=== PATIENT | male | born 1975 | race Caucasian/White ===

== ENCOUNTER 2016-07-27 05:59 | Emergency (ER) ==
[2016-07-27] MEDS ORDERED: DILAUDID IM ONE (06:27)
[2016-07-27] MEDS ORDERED: DECADRON IM ONE (06:28)
[2016-07-27] MEDS ORDERED: PHENERGAN IM ONE (06:28)
--- NOTE | 2016-07-27 06:34 | PROVIDER DOCUMENTATION ---
HPI-General Adult - General Chief Complaint: Back Pain Stated Complaint: BACK PAIN Time Seen by Provider: 07/27/16 06:22 Source: patient Allergies/Adverse Reactions: Patient Allergies Allergy/AdvReac Type Severity Reaction Status Date / Time lorazepam [From Ativan] AdvReac Severe "MADE ME Verified 07/27/16 06:08 WILD" Home Medications: Home Medication List Medication Instructions Recorded Confirmed Last Taken Type Sertraline [Zoloft] 100 mg PO DAILY 03/12/16 07/27/16 04/06/16 History Clonidine [Catapres] 0.1 mg PO HS 04/06/16 07/27/16 04/06/16 History - History of Present Illness -Gen Adult Nature of Presenting Problems: This patient has had back pain for several months and sees Dr. Pérez. He was seen by the back docs in and is scheduled for an MRI and an appointment in September. He is just taking Tylenol for pain and states it is getting much worse. Location of Pain/Injury: reports: back Pain Radiation: reports: legs (lower) (left) Quality of Pain: reports: aching, sharp, tearing, throbbing Severity: reports: moderate Timing: reports: still present Context/Activities at Onset: reports: moderate activity Modifying Factors: improves with: lying down, rest. worse with: exercise, movement Associated Symptoms: denies: back/neck pain, chest pain, diaphoresis, fever/ chills, sinus congestion/drainage, shortness of breath Similar Symptoms Previously?: Yes Recently seen or treated by another doctor?: Yes Review of Systems - Adult - REVIEW OF SYSTEMS - ADULT Constitutional: reports: no symptoms reported Eyes: reports: no symptoms reported Ears, Nose, Mouth & Throat: reports: no symptoms reported Cardiovascular: reports: no symptoms reported Respiratory: reports: no symptoms reported Gastrointestinal: reports: no symptoms reported Genitourinary: reports: no symptoms reported Musculoskeletal: reports: back pain Integumentary: reports: no symptoms reported Neurological: reports: no symptoms reported Psychiatric: reports: no symptoms reported Endocrine: reports: no symptoms reported Hematologic/Lymphatic: reports: no symptoms reported Allergic/Immunologic: reports: no symptoms reported All Other Systems: Reviewed and Negative Past History - Adult - PAST MEDICAL HISTORY-ADULT Major Childhood Illnesses: reports: denies history Cardiovascular: reports: HTN, murmur Respiratory: reports: denies history Gastrointestinal: reports: denies history Obstetrical/Gynecological: reports: denies history Genitourinary: reports: denies history Musculoskeletal: reports: denies history Neurological: reports: denies history Psychiatric: reports: anxiety Endocrine/Immune: reports: denies history Other Conditions: reports: denies history - PRIOR SURGERIES/PROCEDURES Surgical/Procedure History: reports: hernia repair, other (splenectomy,repaired aorta liver lac ) - IMMUNIZATION STATUS Childhood Immunizations: See Nurse Assessment Flu Vaccine: See Nurse Assessment - FAMILY HISTORY Family History: reviewed, not pertinent - SOCIAL HISTORY Smoking: cigarettes Physical Exam-General - PHYSICAL EXAM-ADULT Initial Vital Signs Reviewed: Yes - CONSTITUTIONAL General Appearance: appears well, mild distress - HEAD, EARS, NOSE, MOUTH & THROAT HENMT: normocephalic/atraumatic - RESPIRATORY Respiratory: lungs clear, normal breath sounds - CARDIOVASCULAR Cardiovascular: regular rate, rhythm - GASTROINTESTINAL (ABDOMEN) Abdominal Exam: non tender, soft - MUSCULOSKELETAL Back Exam: decreased range of motion, vertebral tenderness, other (SLR negative) - SKIN Integumentary: normal color, normal turgor - NEUROLOGIC Neurologic: grossly normal - PSYCHIATRIC Psych/Mental Status: oriented x 3 Departure - Departure Time of Disposition Order: 06:32 DIAGNOSIS: Back pain of lumbar region with sciatica Disposition: HOME 01 Certified Medical Emergency: Urgent Condition: Good Additional Instructions: Follow up with the [facility] in [facility].
[2016-07-27 07:45] VITALS: BP 132/074
== END 2016-07-27 07:40 | disposition home or self-care (01) ==
LOC: P.ED 05:59
DX: M54.40 Lumbago with sciatica, unspecified side (principal); M79.662 Pain in left lower leg; I10 Essential (primary) hypertension; F41.9 Anxiety disorder, unspecified; Z79.899 Other long term (current) drug therapy; Z90.81 Acquired absence of spleen
CPT/HCPCS: 96372; J1100; J1170; J2550

== ENCOUNTER 2016-07-31 12:18 | Emergency (ER) ==
[2016-07-31] MEDS ORDERED: ASPIRIN PO STA (12:33)
[2016-07-31 12:45] LABS: MANUAL DIFF NEEDED? NO
[2016-07-31 12:51] LABS: BASO% 0.5 % (0.0-0.8); EOS# 0.26 X1000 (0.0-0.7); EOS% 1.5 % (0.0-10.0); HEMATOCRIT 50.6 % (42.0-52.0); HEMOGLOBIN 17.4 g/dL (14.0-18.0); IMM GRAN# 0.06 X1000 (0.0-0.04); IMM GRAN% 0.3 % (0.0-0.5); LYMPH# 3.54 X1000 (1.2-3.4); LYMPH% 20.6 % (20.5-51.1); MCH 31.5 PG (27-31); MCHC 34.4 g/dL (33-37); MCV 91.7 FL (81-99); MONO% 8.7 % (1.7-9.3); NEUT% 68.4 % (42.2-75.2); PLT 353 X1000 (130-400); RBC 5.52 XMIL (4.7-6.1)
[2016-07-31 13:07] LABS: INR 0.81 (0.86-1.15); PROTIME 11.5 Seconds (12.1-15.5)
[2016-07-31 13:24] LABS: AGAP 14; ALBUMIN 4.7 g/dL (3.5-5.0); ALKALINE PHOSPHATASE 54 U/L (32-122); BUN 11 mg/dL (8-22); CALCIUM 9.5 mg/dL (8.8-10.2); CHLORIDE 101 mmol/L (98-107); CK PROFILE 58 U/L (24-204); COSMO 279; GOT 19 U/L (10-34); GPT 19 U/L (10-44); MAGNESIUM 2.1 mg/dL (1.5-2.7); POTASSIUM 3.3 mmol/L (3.5-5.1); SODIUM 140 mmol/L (136-145); TCO2 26 mmol/L (25-35); TOTAL PROTEIN 7.3 g/dL (6.3-8.3)
--- NOTE | 2016-07-31 13:31 | Diag Imaging Result Document ---
PROCEDURE NAME: CHEST-PORTABLE - 07/31/2016 PORTABLE CHEST X-RAY: COMPARISON: 06/16/2016. FINDINGS: Stable volume loss on the left side, with upsloping of the left hemidiaphragm. No focal infiltrates, pneumothorax, or pleural effusion. Heart size and pulmonary vascularity is normal. IMPRESSION: No acute disease or change from prior.
--- NOTE | 2016-07-31 14:09 | EKG Report ---
Test Performed on : 07/31/2016 1:40:08 PM Test Reason : CHEST PAIN Blood Pressure : / mmHG Vent. Rate : 067 BPM Atrial Rate : 067 BPM P-R Int : 126 ms QRS Dur : 098 ms QT Int : 402 ms P-R-T Axes : -36 040 043 degrees QTc Int : 424 ms Unusual P axis, possible ectopic atrial rhythm. Abnormal ECG When compared with ECG of 16-JUN-2016 04:31, Ectopic atrial rhythm. has replaced Sinus rhythm. Unconfirmed Result
--- NOTE | 2016-07-31 14:28 | ED EKG INTERP ---
EKG Interpretation - EKG Time of EKG reading by physician:: 13:40 EKG Read and Signed by:: Michi Pineda EKG Interpretation (*Must complete 3 of following elements*): Abnormal ( Abnormal ECG) Rate: 67 Rhythm: Unusual p axis, possible ectopic atrial rhythm. Attestation - Scribe Verification/Attestation Scribe:: Daphney Downing Acting as Scribe for:: Michi Pineda Scribe documention review:: This chart was documented by a scribe and accurately reflects the service the provider performed and the decisions made by the provider.
[2016-07-31 14:58] LABS: URINE MICROSCOPIC NEEDED? NO; URINE SOURCE CLEAN CATCH
[2016-07-31 15:10] LABS: BILIRUBIN URINE NEGATIVE (NEGATIVE); BLOOD URINE NEGATIVE (NEGATIVE); CLARITY CLEAR (CLEAR); COLOR YELLOW; GLUCOSE URINE NEGATIVE (NEGATIVE); LEUKOCYTES URINE NEGATIVE (NEGATIVE); NITRITE URINE NEGATIVE (NEGATIVE); PROTEIN URINE NEGATIVE (NEGATIVE); SP GRAVITY URINE 1.015; UROBILINOGEN URINE NORMAL
[2016-07-31 15:13] LABS: UR AMPHETAMINES QUAL NONE DETECTED (NONE DETECT); UR BARBITUATES QUAL NONE DETECTED (NONE DETECT); UR BENZODIAZEPIN QUAL NONE DETECTED (NONE DETECT); UR CANNABINOIDS QUAL NONE DETECTED (NONE DETECT); UR COCAINE QUAL NONE DETECTED (NONE DETECT); UR MDMA QUAL NONE DETECTED (NONE DETECT); UR METHADONE QUAL NONE DETECTED (NONE DETECT); UR METHAMPHETAMINE QUAL NONE DETECTED (NONE DETECT); UR OPIATES QUAL NONE DETECTED (NONE DETECT); UR OXYCODONE QUAL NONE DETECTED (NONE DETECT); UR PCP QUAL NONE DETECTED (NONE DETECT); UR TCA QUAL NONE DETECTED (NONE DETECT)
--- NOTE | 2016-07-31 15:44 | PROVIDER DOCUMENTATION ---
HPI-Syncope/Dizziness - General Chief Complaint: Syncope Stated Complaint: FAINTED/POSS SEIZURE Time Seen by Provider: 07/31/16 14:51 Source: patient, family Allergies/Adverse Reactions: Patient Allergies Allergy/AdvReac Type Severity Reaction Status Date / Time lorazepam [From Ativan] AdvReac Severe "MADE ME Verified 07/27/16 06:08 WILD" Home Medications: Home Medication List Medication Instructions Recorded Confirmed Last Taken Type Sertraline [Zoloft] 100 mg PO DAILY 03/12/16 07/27/16 04/06/16 History Clonidine [Catapres] 0.1 mg PO HS 04/06/16 07/27/16 04/06/16 History Hydrocodone/Acetaminophen [[place] 1 each PO Q8H PRN PRN #14 tablet 07/27/16 Unknown Rx 10-325 Tablet] Methocarbamol [Robaxin-750] 1,500 mg PO Q8HR #40 tablet 07/27/16 Unknown Rx Prednisone 20 mg PO DAILY #12 tablet 07/27/16 Unknown Rx - History of Present Illness-Syncope/Dizzy Recently Seen Here or By Another Healthcare Provider: No Past History - Adult - PAST MEDICAL HISTORY-ADULT Major Childhood Illnesses: reports: denies history Cardiovascular: reports: HTN, murmur Respiratory: reports: denies history Gastrointestinal: reports: denies history Obstetrical/Gynecological: reports: denies history Genitourinary: reports: denies history Musculoskeletal: reports: denies history Neurological: reports: denies history Psychiatric: reports: anxiety Endocrine/Immune: reports: denies history Other Conditions: reports: denies history - PRIOR SURGERIES/PROCEDURES Surgical/Procedure History: reports: hernia repair, other (splenectomy,repaired aorta liver lac ) - IMMUNIZATION STATUS Childhood Immunizations: See Nurse Assessment Flu Vaccine: See Nurse Assessment - FAMILY HISTORY Family History: reviewed, not pertinent Departure - Departure Time of Disposition Order: 17:10 DIAGNOSIS: Caffeine dependence Syncopal episodes Qualifiers: Syncope type: unspecified Qualified Code(s): R55 - Syncope and collapse Head injury due to trauma Qualifiers: Encounter type: initial encounter Qualified Code(s): S09.90XA - Unspecified injury of head, initial encounter Disposition: HOME 01 Certified Medical Emergency: Emergent Condition: Stable Additional Instructions: Follow up with primary care doctor. Decrease intake of Monster drinks. Increase water intake. Take a multivitamin. ED Follow Up Instructions: You have been treated by a care provider in the Emergency Department. These instructions are being provided to you so you can have an understanding of how to care for yourself upon discharge. Upon discharge from the Emergency Department, you are responsible for making arrangements for follow-up care by a physician of your choice. Take all prescribed medications as directed. Return to the Emergency Department immediately for any new or worsening symptoms. You may call the Physician Referral phone number at [phone] to obtain a list of Physicians who are taking new patients. Referrals: Amirah Pérez [Primary Care Provider] - Attestation - Physician/ [facility] Attestation Patient care was provided by Advanced Practice Provider:: Yes Advanced Practice Provider:: Yolanda Ness Advanced Practice Provider documentation review:: The Mid-level provider documentation, treatment plan and medical decision making was reviewed by the physician who agrees with all treatment and medical decision making by the MLP.
--- NOTE | 2016-07-31 15:52 | Diag Imaging Result Document ---
PROCEDURE NAME: HEAD/C-SPINE W/O CONTRAST - 07/31/[address]: A CT dose reduction protocol was used. COMPARISON: None. FINDINGS: The ventricles and sulci are normal in size and contour. There is no mass, hemorrhage, or evidence of acute ischemia. The bony calvaria is intact. The visualized paranasal sinuses and mastoid air cells are clear. IMPRESSION: Negative head CT. CT CERVICAL SPINE: A CT dose reduction protocol was used. COMPARISON: None. FINDINGS: Alignment is anatomic. Vertebral body heights and intervertebral disc spaces are preserved. Neural foramina are patent. Soft tissues are clear. IMPRESSION: Negative Exam. MTDD
--- NOTE | 2016-07-31 15:57 | EKG Report ---
Test Performed on : 07/31/2016 3:47:52 PM Test Reason : repeat cardiac protocol Blood Pressure : / mmHG Vent. Rate : 076 BPM Atrial Rate : 076 BPM P-R Int : 130 ms QRS Dur : 092 ms QT Int : 388 ms P-R-T Axes : 000 027 028 degrees QTc Int : 436 ms Normal sinus rhythm. Normal ECG When compared with ECG of 31-JUL-2016 13:40, (Unconfirmed) Sinus rhythm. has replaced Ectopic atrial rhythm. Unconfirmed Result
[2016-07-31] MEDS ORDERED: KLOR-CON PO ONE (17:01)
[2016-07-31] MEDS ORDERED: NORCO-10 PO ONE (17:02)
[2016-07-31 17:23] VITALS: BP 130/96
== END 2016-07-31 17:23 | disposition home or self-care (01) ==
LOC: P.ED 12:18
DX: R55 Syncope and collapse (principal); S09.90XA Unspecified injury of head, initial encounter; F15.20 Other stimulant dependence, uncomplicated; R94.31 Abnormal electrocardiogram [ECG] [EKG]; R11.0 Nausea; R07.9 Chest pain, unspecified; I10 Essential (primary) hypertension; F41.9 Anxiety disorder, unspecified; Z79.899 Other long term (current) drug therapy; Z90.81 Acquired absence of spleen
CPT/HCPCS: 70450; 71010; 72125; 80053; 80305; 82550; 82948; 83735; 83880; 84484; 85025; 85379; 85610; 85730; 93005

== ENCOUNTER 2016-08-02 21:08 | Emergency (ER) ==
--- NOTE | 2016-08-02 21:35 | EKG Report ---
Test Performed on : 08/02/2016 9:25:59 PM Test Reason : psych screening Blood Pressure : / mmHG Vent. Rate : 082 BPM Atrial Rate : 082 BPM P-R Int : 136 ms QRS Dur : 090 ms QT Int : 366 ms P-R-T Axes : 073 045 049 degrees QTc Int : 427 ms Normal sinus rhythm. Minimal voltage criteria for LVH, may be normal variant Nonspecific T wave abnormality Abnormal ECG When compared with ECG of 31-JUL-2016 15:47, (Unconfirmed) No significant change was found Unconfirmed Result
[2016-08-02 21:44] LABS: MANUAL DIFF NEEDED? NO
[2016-08-02 21:47] LABS: BASO% 0.3 % (0.0-0.8); EOS# 0.44 X1000 (0.0-0.7); EOS% 2.5 % (0.0-10.0); HEMATOCRIT 44.3 % (42.0-52.0); HEMOGLOBIN 15.7 g/dL (14.0-18.0); IMM GRAN# 0.05 X1000 (0.0-0.04); IMM GRAN% 0.3 % (0.0-0.5); LYMPH# 4.61 X1000 (1.2-3.4); LYMPH% 25.7 % (20.5-51.1); MCH 32.2 PG (27-31); MCHC 35.4 g/dL (33-37); MCV 90.8 FL (81-99); MONO# 2.27 X1000 (0.11-0.59); MONO% 12.6 % (1.7-9.3); MPV 9.6 FL (7.4-10.4); NEUT% 58.6 % (42.2-75.2); PLT 320 X1000 (130-400); RBC 4.88 XMIL (4.7-6.1)
[2016-08-02 21:50] LABS: URINE CULTURE PL NEEDED? NO; URINE SOURCE VOIDED
[2016-08-02] MEDS ORDERED: NORVASC PO ONE (21:54)
[2016-08-02] MEDS ORDERED: PRINIVIL PO ONE (21:54)
[2016-08-02 21:55] LABS: BILIRUBIN URINE NEGATIVE (NEGATIVE); BLOOD URINE NEGATIVE (NEGATIVE); CLARITY CLEAR (CLEAR); COLOR YELLOW; GLUCOSE URINE NEGATIVE (NEGATIVE); LEUKOCYTES URINE NEGATIVE (NEGATIVE); NITRITE URINE NEGATIVE (NEGATIVE); PROTEIN URINE NEGATIVE (NEGATIVE); UROBILINOGEN URINE NORMAL
[2016-08-02 21:56] LABS: UR AMPHETAMINES QUAL NONE DETECTED (NONE DETECT); UR BARBITUATES QUAL NONE DETECTED (NONE DETECT); UR BENZODIAZEPIN QUAL NONE DETECTED (NONE DETECT); UR CANNABINOIDS QUAL NONE DETECTED (NONE DETECT); UR COCAINE QUAL NONE DETECTED (NONE DETECT); UR MDMA QUAL NONE DETECTED (NONE DETECT); UR METHADONE QUAL NONE DETECTED (NONE DETECT); UR METHAMPHETAMINE QUAL NONE DETECTED (NONE DETECT); UR OPIATES QUAL NONE DETECTED (NONE DETECT); UR OXYCODONE QUAL NONE DETECTED (NONE DETECT); UR PCP QUAL NONE DETECTED (NONE DETECT); UR TCA QUAL NONE DETECTED (NONE DETECT)
--- NOTE | 2016-08-02 21:56 | PROVIDER DOCUMENTATION ---
HPI-Psychological Disorder - History of Present Illness-Psych Onset/Duration: reports: 3 days ago Timing: reports: still present Severity: reports: moderate Previous psych related hospitalizations?: No Similar Symptoms Previously?: No Recently seen or treated by another doctor?: No <Augie Rogers - Last Filed: 08/02/16 21:56> <Jabier Gorman - Last Filed: 08/03/16 05:26> - General Chief Complaint: Psych Stated Complaint: MENTAL EVAL Time Seen by Provider: 08/02/16 21:43 Allergies/Adverse Reactions: Patient Allergies Allergy/AdvReac Type Severity Reaction Status Date / Time No Known Allergies Allergy Verified 08/02/16 21:21 Home Medications: Home Medication List Medication Instructions Recorded Confirmed Last Taken Type Clonidine [Catapres] 0.1 mg PO HS 04/06/16 08/02/16 04/06/16 History Methocarbamol [Robaxin-750] 1,500 mg PO Q8HR #40 tablet 07/27/16 08/02/16 Unknown Rx - History of Present Illness-Psych Nature of Presenting Problem: 40 YOWM PRESENTS TO ED WITH C/O PT STATES HE IS DEPRESSED. PT STATES HE IS HAVING SUICIDE IDEATION. PT STATES DEPRESSION HAS BEEN WORSE IN LAST 3 DAYS. PT SATES HE LOST HIS IN OCTOBER. PT STATES LOST HIS GIRLFRIEND 1 WEEK AGO. (Augie Rogers) Review of Systems - Adult - REVIEW OF SYSTEMS - ADULT Constitutional: denies: chills, fever Eyes: reports: no symptoms reported Ears, Nose, Mouth & Throat: reports: no symptoms reported Cardiovascular: denies: chest pain, palpitations, syncope Respiratory: denies: cough, shortness of breath, wheezing Gastrointestinal: denies: abdominal pain, diarrhea, nausea, vomiting Genitourinary: reports: no symptoms reported Musculoskeletal: denies: back pain, neck pain Integumentary: reports: no symptoms reported Neurological: denies: dizziness/vertigo, headache/migraines, syncope Psychiatric: reports: depression Endocrine: reports: no symptoms reported Hematologic/Lymphatic: reports: no symptoms reported Allergic/Immunologic: reports: no symptoms reported All Other Systems: Reviewed and Negative <Augie Rogers - Last Filed: 08/02/16 21:56> Past History - Adult - PAST MEDICAL HISTORY-ADULT Review of Records: reports: Nursing Assessment Review, Medications Reviewed Cardiovascular: reports: HTN, murmur Psychiatric: reports: anxiety - PRIOR SURGERIES/PROCEDURES Surgical/Procedure History: reports: hernia repair, other (splenectomy,repaired aorta liver lac ) - IMMUNIZATION STATUS Childhood Immunizations: See Nurse Assessment Flu Vaccine: See Nurse Assessment - FAMILY HISTORY Family History: reviewed, not pertinent - SOCIAL HISTORY Smoking: cigarettes, greater than 1 pack/day Provider spent 3-5 mins advising pt. on dangers of tobacco.: Discussed manners to quit use, and f/u contacts for add'l counseling. Substance Use: denies Alcohol Use Frequency: never Living Situation: family <Augie Rogers - Last Filed: 08/02/16 21:56> Physical Exam-Psych Focus - Physical Exam-Psych Appearance: appropriate appearance, moderate distress Neurological: alert, oriented x 3 Behavior/Eye Contact/Speech: cooperative, good eye contact Thoughts/Hallucinations: normal thought pattern HENMT: normocephalic/atraumatic, moist mucous membranes Neck: non-tender, full range of motion, supple Respiratory: chest non-tender, lungs clear, normal breath sounds Cardiovascular: normal peripheral pulses, regular rate, rhythm Abdominal Exam: normal bowel sounds, non tender, soft Lymphatic: no adenopathy Back Exam: normal inspection, no CVA tenderness, no vertebral tenderness Extremity: normal range of motion, non-tender Integumentary: normal color, normal turgor, warm/dry <Augie Rogers - Last Filed: 08/02/16 21:56> Progress - EKG 1 Time of EKG reading by physician:: 21:26 EKG Read and Signed by:: Jabier Gorman EKG Interpretation (*Must complete 3 of following elements*): Abnormal Rate: 82 Rhythm: NSR Jean: normal QRS: LVH Comments: LVH, PULMONARY DISEASE <Augie Rogers - Last Filed: 08/02/16 21:56> Departure <Augie Rogers - Last Filed: 08/02/16 21:56> - Departure Time of Disposition Order: 05:25 Certified Medical Emergency: Emergent <Jabier Gorman - Last Filed: 08/03/16 05:26> - Departure DIAGNOSIS: Depression with suicidal ideation Disposition[facility] Condition: Fair Attestation - Scribe Verification/Attestation Scribe:: Augie Rogers Acting as Scribe for:: Jabier Gorman Scribe documention review:: This chart was documented by a scribe and accurately reflects the service the provider performed and the decisions made by the provider. <Augie Rogers - Last Filed: 08/02/16 21:56> Physician Attestation
[2016-08-02] MEDS ORDERED: SEROQUEL PO ONE (21:57)
[2016-08-02] MEDS ORDERED: SEROQUEL ONE (21:58)
[2016-08-02 22:06] LABS: AGAP 13; ALBUMIN 4.4 g/dL (3.5-5.0); ALKALINE PHOSPHATASE 43 U/L (32-122); BUN 12 mg/dL (8-22); CALCIUM 8.8 mg/dL (8.8-10.2); CHLORIDE 98 mmol/L (98-107); COSMO 270; GOT 16 U/L (10-34); GPT 15 U/L (10-44); POTASSIUM 3.4 mmol/L (3.5-5.1); SODIUM 135 mmol/L (136-145); TCO2 24 mmol/L (25-35); TOTAL PROTEIN 6.6 g/dL (6.3-8.3)
[2016-08-02 22:06] LABS: URINE CAST NONE SEEN /LPF; URINE CRYSTAL NONE SEEN /HPF; URINE EPITHELIAL CELLS <10 /HPF (<10)
[2016-08-02 22:17] LABS: FREE T4 1.32 ng/dL (0.93-1.70)
[2016-08-03 05:26] VITALS: BP 86/62
== END 2016-08-03 06:05 ==
LOC: P.ED 21:08
DX: F32.9 Major depressive disorder, single episode, unspecified (principal); R45.851 Suicidal ideations; R94.31 Abnormal electrocardiogram [ECG] [EKG]; I10 Essential (primary) hypertension; F17.210 Nicotine dependence, cigarettes, uncomplicated; Z79.899 Other long term (current) drug therapy; Z71.6 Tobacco abuse counseling; Z90.81 Acquired absence of spleen
CPT/HCPCS: 80053; 80305; 81001; 82607; 84439; 84443; 85025; 93005; 99285; G0480; 80320

== ENCOUNTER 2016-12-28 01:07 | Inpatient (IN) ==
--- NOTE | 2016-12-28 01:27 | ED EKG INTERP ---
This chart was entered by Sly Green Scribe, acting as scribe for Arnulfo Brasher MD. EKG Interpretation - EKG Time of EKG reading by physician:: 01:01 EKG Read and Signed by:: Arnulfo Brasher EKG Interpretation (*Must complete 3 of following elements*): Normal Rate: 72 Rhythm: NSR Attestation - Physician/ [facility] Attestation Patient care was provided by Advanced Practice Provider:: No The physician spent face to face time with patient:: Yes Advanced Practice Provider documentation review:: Supervising physician onsite and consulted in the evaluation and care of this patient. The physician did have a face to face encounter with the patient. This chart was documented by the indicated scribe, (Sly Green Scribe) and accurately reflects the services I performed and decisions made by me, Arnulfo Brasher MD, as attested by the provider's signature.
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
[2016-12-28 02:08] LABS: BASO% 0.3 % (0.0-0.8); EOS# 0.12 X1000 (0.0-0.7); EOS% 0.5 % (0.0-10.0); HEMATOCRIT 44.6 % (42.0-52.0); HEMOGLOBIN 15.3 g/dL (14.0-18.0); IMM GRAN# 0.07 X1000 (0.0-0.04); IMM GRAN% 0.3 % (0.0-0.5); LYMPH# 4.68 X1000 (1.2-3.4); MANUAL DIFF NEEDED? NO; MCH 31.9 PG (27-31); MCHC 34.3 g/dL (33-37); MCV 93.1 FL (81-99); MONO% 8.5 % (1.7-9.3); MPV 10.4 FL (7.4-10.4); NEUT% 70.4 % (42.2-75.2); PLT 347 X1000 (130-400); RBC 4.79 XMIL (4.7-6.1)
[2016-12-28 02:10] LABS: AGAP 15; ALBUMIN 4.8 g/dL (3.5-5.0); ALKALINE PHOSPHATASE 49 U/L (32-122); BUN 16 mg/dL (8-22); CALCIUM 9.3 mg/dL (8.8-10.2); CHLORIDE 102 mmol/L (98-107); COSMO 284; GOT 16 U/L (10-34); GPT 13 U/L (10-44); POTASSIUM 4.2 mmol/L (3.5-5.1); SODIUM 141 mmol/L (136-145); TCO2 24 mmol/L (25-35); TOTAL BILIRUBIN 0.19 mg/dL (0.20-1.00); TOTAL PROTEIN 7.1 g/dL (6.3-8.3)
[2016-12-28] MEDS ORDERED: TYLENOL PO ONE (02:23)
[2016-12-28 03:36] LABS: URINE CULTURE NEEDED? NO; URINE MICRO REVIEW NEEDED? NO; URINE SOURCE CLEAN CATCH
[2016-12-28 03:40] LABS: BILIRUBIN URINE NEGATIVE (NEGATIVE); BLOOD URINE NEGATIVE (NEGATIVE); COLOR YELLOW; GLUCOSE URINE NEGATIVE (NEGATIVE); LEUKOCYTES URINE NEGATIVE (NEGATIVE); NITRITE URINE NEGATIVE (NEGATIVE); PROTEIN URINE NEGATIVE (NEGATIVE); SP GRAVITY URINE 1.013; TURBIDITY URINE CLEAR (CLEAR); UROBILINOGEN URINE 2 mg/dL (NORMAL)
[2016-12-28 03:41] LABS: UR EPITHELIAL CELLS <10 /HPF (<10); URINE BACTERIA NEGATIVE /HPF; URINE RBC <10 /HPF (<10); URINE WBC <10 /HPF (<10)
[2016-12-28 03:49] LABS: UR AMPHETAMINES QUAL NONE DETECTED (NONE DETECT); UR BARBITUATES QUAL NONE DETECTED (NONE DETECT); UR BENZODIAZEPIN QUAL NONE DETECTED (NONE DETECT); UR CANNABINOIDS QUAL NONE DETECTED (NONE DETECT); UR COCAINE QUAL NONE DETECTED (NONE DETECT); UR METHADONE QUAL NONE DETECTED (NONE DETECT); UR OPIATES QUAL NONE DETECTED (NONE DETECT); UR OXYCODONE QUAL NONE DETECTED (NONE DETECT); UR PCP QUAL NONE DETECTED (NONE DETECT)
[2016-12-28] MEDS ORDERED: ROCEPHIN 1 GM/NS 1 GM/50 ML IVPB IV ONE (04:33)
--- NOTE | 2016-12-28 05:24 | Diag Imaging Result Doc PS360 ---
EXAM: THORAX/ABDOMEN/PELVIS HISTORY: leukocytosis TECHNIQUE: CT chest with contrast. CT abdomen and pelvis with contrast. Dose reduction protocol. COMPARISON: None. FINDINGS: Chest: No pleural effusions. No cardiomegaly. No thoracic aneurysm. There are small mediastinal lymph nodes. Atelectasis of the lung bases. Mild emphysematous changes. No consolidation. No bronchiectasis. I believe there has been prior surgery to the aortic arch. Abdomen and pelvis: No gallstones or adjacent inflammation. Normal liver, pancreas, and adrenal glands. I believe the spleen has been removed. There are small scattered renal cysts in addition to a 4.6 cm left renal cyst. No hydronephrosis. Normal aorta. There is an anterior abdominal wall mesh. No bowel obstruction. Normal appendix. No abscess. The urinary bladder is only minimally distended. The prostate is not enlarged. IMPRESSION: Chest: 1. Emphysema 2. No pneumonia 3. Atelectasis Abdomen and pelvis: 1. Splenectomy 2. Anterior abdominal wall mesh 3. Scattered renal cysts Electronically signed by Bob Olivarez 12/28/2016 5:22 AM
[2016-12-28] MEDS ORDERED: TYLENOL PO PRN (05:39)
[2016-12-28] MEDS ORDERED: ZOFRAN IV PRN (05:39)
[2016-12-28] MEDS ORDERED: NICODERM PATCH TD PRN (05:41)
[2016-12-28] MEDS ORDERED: ATIVAN IV PRN (05:56)
[2016-12-28] MEDS: LOVENOX SUBQ SCH (06:05)
[2016-12-28] MEDS: NS 1,000 ML IV SCH ×3 (06:05→20:48)
[2016-12-28] MEDS: PRILOSEC PO SCH (06:06)
[2016-12-28] MEDS: ZOSYN 3.375 GM/NS 3.375 GM/50 ML IVPB IV SCH ×5 (06:07→21:56)
[2016-12-28] MEDS: NORVASC PO SCH ×3 (06:10→20:47)
[2016-12-28 06:32] LABS: ALLEN TEST YES; BE 1.3 mmoll (-3.0-3.0); BLOOD TYPE ARTERIAL; DRAW SITE R RADIAL; MODALITY ROOM AIR; PCO2(98.6) 40 mmHg (35-45); PO2(98.6) 70 mmHg (60-100); SAMPLE BLOOD; SAO2 96.7 % (95.0-100.0); THB 14.9 g/dL (11.5-17.4); pH(98.6) 7.42 (7.35-7.45)
[2016-12-28 06:34] LABS: METHB 1.3 % (0.0-1.5)
--- NOTE | 2016-12-28 07:15 | Diag Imaging Result Doc PS360 ---
HEAD W/O CONTRAST - 12/28/2016 INDICATION: seizure TECHNIQUE: A CT dose reduction protocol was used. COMPARISON: 07/31/2016 FINDINGS: The ventricles and sulci are normal in size and contour. No intracranial mass or hemorrhage. The skull is intact. There is some fluid in the right maxillary sinus. IMPRESSION: Negative exam. Electronically signed by Manuel Sher 12/28/2016 7:12 AM
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
--- NOTE | 2016-12-28 07:48 | EKG Report ---
Test Performed on : 12/28/2016 01:01:44 AM Test Reason : No Order in [facility] Blood Pressure : / mmHG Vent. Rate : 072 BPM Atrial Rate : 072 BPM P-R Int : 126 ms QRS Dur : 098 ms QT Int : 384 ms P-R-T Axes : 000 046 044 degrees QTc Int : 420 ms Normal sinus rhythm. Normal ECG When compared with ECG of 25-DEC-2016 11:46, (Unconfirmed) No significant change was found Unconfirmed Result
--- NOTE | 2016-12-28 09:07 | Diag Imaging Result Doc PS360 ---
MRI BRAIN W W/O CONTRAST - 12/28/2016 INDICATION: recurrent seizures COMPARISON: Brain MRI 12/27/2016 FINDINGS: There is no area of restricted diffusion. The ventricles and sulci are normal in size and contour. No intracranial mass or hemorrhage. No area of abnormal contrast enhancement. Midline structures including the optic chiasm and pituitary are normal. IMPRESSION: Negative exam. Electronically signed by Manuel Sher 12/28/2016 9:04 AM
--- NOTE | 2016-12-28 16:44 | PROGRESS NOTE ---
DATE: 12/28/2016 SUBJECTIVE: Today Mr. Triana referred to be doing fine. Has not had any more seizure-like activity here in the hospital. Patient has already been evaluated by Neurology. OBJECTIVE: Vital signs: Blood pressure is 140/74, pulse of 70, respirations 14 , temperature 97.9 degrees. General: Mr. Triana is a 41-year-old male. He is in bed, does not seems to be in any distress. HEENT: Mucosa is pink and moist. Anicteric. Acyanotic. Neck: Supple. Chest: Clear. There is a few transmitted sounds. Cardiovascular: Regular rate and rhythm. There is no murmurs, no rubs. No gallops. Abdomen: Soft, nontender. Extremities: No pedal edema. 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 There is no focal neurological deficit. LABORATORY DATA: WBC is 23.41, hemoglobin is 15.3, platelet count of 347,000. Chemistry is reviewed. Sodium is 141, potassium is 4.7, chloride is 102. IMAGING: An MRI of the brain was done this morning which is negative. An EEG has also been ordered. We are still pending the official report. ASSESSMENT: 1. Frequent episodes of loss of consciousness with tonic-clonic muscular activity suggestive of seizure disorder newly diagnosed. The patient has been evaluated by Neurology. He is currently not on any antiseizure medication. We will be waiting on further recommendations from them. 2. Active tobacco use with emphysematous changes in the lungs. 3. 4.6 cm left renal cyst noted on CT scan. 4. Carboxyhemoglobinemia noted. 5. Mildly elevated WBC, not quite sure if this was demargination or reflection of a true infection. Blood culture and urine culture have been done. We are still pending the final report. If by tomorrow they are all negative, we will discontinue the antibiotics. 6. History of hypertension. Blood pressure actually was very high when he came in, but it is acceptable now. Patient will continue with amlodipine. 7. Frequent cocaine use. Patient has been counselled. cc: Reilly Tsai MD [facility]PITALEvreardo
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
[2016-12-29] MEDS: ZOSYN 3.375 GM/NS 3.375 GM/50 ML IVPB IV SCH ×3 (04:15→09:47)
[2016-12-29 05:49] LABS: BASO% 0.5 % (0.0-0.8); EOS# 0.12 X1000 (0.0-0.7); EOS% 0.7 % (0.0-10.0); HEMATOCRIT 42.3 % (42.0-52.0); HEMOGLOBIN 14.1 g/dL (14.0-18.0); IMM GRAN# 0.03 X1000 (0.0-0.04); IMM GRAN% 0.2 % (0.0-0.5); LYMPH# 3.81 X1000 (1.2-3.4); LYMPH% 22.4 % (20.5-51.1); MANUAL DIFF NEEDED? YES; MCH 31.8 PG (27-31); MCHC 33.3 g/dL (33-37); MCV 95.5 FL (81-99); MONO# 1.89 X1000 (0.11-0.59); MONO% 11.1 % (1.7-9.3); MPV 10.3 FL (7.4-10.4); NEUT% 65.1 % (42.2-75.2); PLT 323 X1000 (130-400); RBC 4.43 XMIL (4.7-6.1)
[2016-12-29 05:55] LABS: AGAP 9; BUN 16 mg/dL (8-22); CALCIUM 8.6 mg/dL (8.8-10.2); CHLORIDE 104 mmol/L (98-107); COSMO 281; POTASSIUM 3.9 mmol/L (3.5-5.1); SODIUM 140 mmol/L (136-145); TCO2 27 mmol/L (25-35)
[2016-12-29 06:09] LABS: LYMPHS 20 % (21-51); MONO 2 % (1-9)
[2016-12-29] MEDS: PRILOSEC PO SCH (06:09)
[2016-12-29] MEDS: LOVENOX SUBQ SCH (06:09)
[2016-12-29 07:42] VITALS: BP 139/91
[2016-12-29] MEDS: NORVASC PO SCH (08:03)
[2016-12-29] MEDS: NS 1,000 ML IV SCH (09:05)
--- NOTE | 2016-12-29 10:45 | EEG REPORT ---
DATE: 12/28/2016 REFERRING PHYSICIAN: Dr. Tsai. EEG #: [id number]. COMMERCIAL PILOT: Gisele Davis. BACKGROUND INFORMATION/TECHNIQUE: A digitally recorded EEG is obtained with 1 additional channel for EKG. HISTORY OF PRESENT ILLNESS: A 41-year-old, male admitted after possible seizure-like activity at home. He had another event 3 months ago and 1 a few days prior to admission as well. Described as eyes rolled back in the head and shaking all over with confusion after at least the most recent event. He does have a history of substance abuse; in particular, cocaine though his toxicology screen was negative upon immediate arrival after the most recent seizure. He says his last use of cocaine was 2 weeks ago. An EEG is ordered to detect evidence of seizures. MEDICATIONS: None. EEG FINDINGS: A posterior dominant 8.5-9 hertz alpha rhythm is seen symmetrically in the occipital regions. The anterior background consists of mixed alpha and beta range frequencies. No focal slowing. No epileptiform discharges and no seizures are noted on this study. Hyperventilation induced normal physiologic slowing diffusely. Photic stimulation induced a normal driving response. The patient becomes drowsy and stage II sleep is observed with qualitatively normal sleep architecture. The EKG demonstrates regular RR intervals. IMPRESSION AND CLINICAL CORRELATION: Normal routine EEG in the awake, drowsy, and sleep states. Of note, a normal EEG does not rule out epilepsy. Clinical correlation is advised. cc: MD Reilly Ramos MD [facility]
--- NOTE | 2016-12-29 12:02 | PROGRESS NOTE ---
DATE: 12/29/2016 SUBJECTIVE: No complaints. The patient is hoping for discharge today. He has an appointment that he has missed. CHIEF COMPLAINT: Seizures, new onset. OBJECTIVE: Vital signs reviewed and stable. Telemetry reviewed with cardiovascular technician. No arrhythmias or bradyarrhythmias. General: This is a male, again lying in bed with his girlfriend asleep initially, no acute distress. HEENT: Unremarkable. No bruising or lesions of the tongue or inner cheeks. Neck: Supple. No meningismus. Trachea is midline. Neurologic: Mental status is awake, alert, oriented. Speech fluent. Attention , concentration intact. He is spontaneously interactive and appropriately conversant. Pupils are equal, reactive to light. Conjugate gaze. Ocular movements noted intact in the horizontal direction. Face symmetric with equal activation. Motor exam: No asymmetry noted. Coordination : No obvious incoordination was noted. DIAGNOSTICS: A routine EEG was personally reviewed. It was normal in the awake , drowsy and sleep states. This does not rule out an underlying seizure disorder. ASSESSMENT AND PLAN: A 41-year-old, right-handed, male with history of cocaine abuse and previous head trauma presenting with 3 new onset seizures starting 3 months ago. The girlfriend present does clearly state that he was shaking for 2-3 minutes with this most recent event that she personally witnessed. There was no incontinence or tongue biting , but there was confusion that she reports with the patient until they arrived to the emergency department. While he does have a history of cocaine abuse, he reports the last time he used was at least 2 weeks ago. He presented following his most recent seizure immediately and had a urine toxicology that was negative for cocaine, so that would not likely explain his reason for seizure, at least for this last event. As such, I am going to go ahead and initiate antiepileptic medication in the form of Keppra 500 mg by mouth twice daily. He should take this dose for 2 weeks and subsequently increase to 1000 mg by mouth twice daily. He should have follow up in the clinic. Side effects of the Keppra were discussed which does include significant and dangerous mood changes. Again, the importance of smoking cessation and cocaine cessation were discussed with the patient. Seizure precautions again advised. He understands his responsibilities regarding his inability to drive and the [place] law regarding this. cc: Bertha Jamison MD [facility]
[2016-12-29] MEDS ORDERED: DUONEB (A & A) INH SCH (16:00)
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
[2016-12-29] MEDS ORDERED: KEPPRA PO SCH (21:00)
[2016-12-30] MEDS ORDERED: ZITHROMAX PO SCH (09:00)
== END 2016-12-29 12:00 | disposition home or self-care (01) ==
LOC: ED 01:07 → SUATTDRO 04:49 → 3S 04:49
PROVIDERS: ATTEND Internal Medicine